=== PATIENT | female | born 1985 | race Asian ===

== ENCOUNTER 2018-05-31 07:52 | Emergency (ER) | payer OTHER ==
[~2018-05-31] VITALS: Ht 162.6 cm; Wt 72.7 kg
[~2018-05-31 07:52] MED LIST: NOCURR
[2018-05-31 08:50] VITALS: BP 159/74
== END 2018-05-31 08:52 | disposition home or self-care (01) ==
LOC: EMS 07:52
DX: J40 Bronchitis, not specified as acute or chronic (principal); H66.91 Otitis media, unspecified, right ear

== ENCOUNTER 2025-01-12 09:20 | Emergency (ER) | payer OTHER ==
[~2025-01-12] VITALS: Ht 165.1 cm; Wt 90.9 kg
[2025-01-12 09:26] VITALS: TEMP 98.2
[2025-01-12] MEDS: AMOX TR/POT CLAV 875 MG/125 MG TABLET PO ONE (13:34)
[2025-01-12] MEDS: IBUPROFEN 600 MG TABLET PO ONE (13:35)
[2025-01-12] MEDS ORDERED: AMOX-457 PO (13:44)
[2025-01-12] MEDS ORDERED: ACET-3385 PO (13:44)
[2025-01-12] MEDS ORDERED: IBUP-1492 PO (13:44)
[2025-01-12 13:49] VITALS: BP 146/90; PULSE 76; RESP 16; O2SAT 98
== END 2025-01-12 13:50 | disposition home or self-care (01) ==
LOC: EMS 09:25
DX: H66.93 Otitis media, unspecified, bilateral (principal)
CPT/HCPCS: 99283